=== PATIENT | male | born 1995 | race Caucasian/White ===

== ENCOUNTER 2025-02-06 06:26 | Day surgery (SDC) | payer OTHER, SELFPAY ==
[2025-02-06 07:29] VITALS: BP 125/75; PULSE 85; RESP 16; TEMP 36.1; O2SAT 99
[2025-02-06 07:41] VITALS: BMI 30.3
[2025-02-06] MEDS: LACTATED RINGERS 1000ML 1,000 ML 50 ML IV (07:45)
--- NOTE | 2025-02-06 07:47 | EXP.HP ---
History of Present Illness *Admission Date: 02/06/25 *Reason for visit:: Bright red rectal bleeding *History of present illness: Mr. Herring is a 30-year-old gentleman who is here for evaluation of bright red rectal bleeding. He has had this for a long time but he says that this is markedly worse over the last 2 to 3 months. He has bright red blood with his bowel movements and blood dripping into the commode. He is uncertain whether he has hemorrhoid prolapse. He does get some anorectal pain but this often occurs when he does not have bleeding and is less frequent. He does report having a large amount of blood in the commode with each bowel movement and blood on the tissue. Notably, he has had moderate amount of weight loss and states that he is lost 6 pounds every 2 weeks. He reports no abdominal pain or family history of colon cancer. He is not on any NSAIDs. He does report normal bowel function but does have incomplete defecation with excessive wiping and longer periods of time on the commode. He does state that his father had prostate cancer. He reports no family history of IBD, Crohn's or colitis. [facility] Disclaimer: The information contained in this section may have been updated after the patient was seen, as this information can be updated by other users. Medical History Hypertension GERD (gastroesophageal reflux disease) Depression Anxiety Surgical History Hx of appendectomy Family History Other Cancer Stroke Social History (Updated 02/06/25 @ 07:43 by Arleen Ballard RN) Smoking Status: Current every day smoker tobacco type: e-cigarettes alcohol intake: former substance use type: denies use current occupational status: employed Travel in the last 8 weeks?: None caffeine: Yes Have you lived/traveled outside [place] in past 30 days?: No Contact w/someone who lives/traveled outside [place] past 30 days?: No Exposure to someone with infectious disease in past 14 days?: No Do you have a fever (greater than 100.4 F or 38 C)?: No Have you tested positive for COVID-19?: No Exposed to someone with COVID-19 in past 14 days?: No Do you have a sore throat?: No Do you have a cough?: No Do you have any weakness?: No Are you experiencing any nausea/vomitting?: No Do you have any diarrhea?: No Are you experiencing any unusual bleeding?: No Do you have any muscle aches/pain?: No Do you have any abdominal pain?: No Are you experiencing loss of taste or smell?: No Review of Systems Review of Systems Review of systems (narrative): Negative *Cardiovascular Comments: Negative *Gastrointestinal Comments: Negative *Genitourinary Comments: Negative *Musculoskeletal Comments: Negative *Neurologic Comments: Negative Meds Home Medications and Allergies Home Medications ?Medication ?Instructions ?Recorded ?Confirmed ?Type bupropion HCl 150 mg 24 hr tablet, 150 mg PO DAILY 01/24/25 02/06/25 History extended release lamotrigine 25 mg tablet 25 mg PO DAILY 01/24/25 02/06/25 History lisinopril 10 mg tablet 10 mg PO DAILY 01/24/25 02/06/25 History mirtazapine 7.5 mg tablet 7.5 mg PO HS 01/24/25 02/06/25 History naltrexone 50 mg tablet 50 mg PO DAILY 01/24/25 02/06/25 History omeprazole 40 mg capsule,delayed 40 mg PO DAILY 01/24/25 02/06/25 History release propranolol 20 mg tablet 20 mg PO TID 01/24/25 02/06/25 History sucralfate 1 gram tablet 1 g PO 4XD 01/24/25 02/06/25 History tadalafil 10 mg tablet 10 mg PO DAILY PRN . 01/24/25 02/06/25 History testosterone cypionate 200 mg/mL 200 mg IM Q2W 01/24/25 02/06/25 History intramuscular oil sodium,potassium,mag sulfates 17.5 See Rx Instructions PO .COMPLEX 02/03/25 02/06/25 Rx gram-3.13 gram-1.6 gram oral soln #354 mL (Suprep Bowel Prep Kit) New Prescriptions to Start Prescriptions: Allergies Allergy/AdvReac Type Severity Reaction Status Date / Time amoxicillin Allergy Unknown Verified 02/06/25 07:37 allergy reaction erythromycin base Allergy Unknown Verified 02/06/25 07:37 allergy reaction Exam Data for Last 24 hours Vital signs and Labs for Last 24 Hours: Temp Pulse Resp BP Pulse Ox O2 Del Method 97.0 F L 85 16 125/75 99 Room Air 02/06/25 07:29 02/06/25 07:29 02/06/25 07:29 02/06/25 07:29 02/06/25 07:29 02/06/25 07:29 I & O for Last 24 hours: Intake & Output 02/03/25 02/04/25 02/05/25 02/06/25 23:59 23:59 23:59 23:59 Weight 230 lb *Routine HEENT Exam Head: Present normocephalic Eye: Present EOMI and PERRL ENT: Present mucous membranes moist *Routine Neck Exam Neck: Present supple *Routine Respiratory Exam Respiratory: Present CTA bilaterally *Routine Cardiovascular Exam Cardiovascular: Present RRR *Routine Abdominal Exam Abdominal: Present soft and normoactive bowel sounds; Absent tenderness *Routine Rectal Exam Rectal:: deferred *Routine Genitalia Exam Genitalia:: deferred *Routine Extremities Exam Extremities: Absent cyanosis, clubbing or edema *Routine Skin Exam Skin: Present warm; Absent rash *Routine Neurological Exam Neurological: Present alert and oriented X3 Assessment and Plan *Assessment and plan (1) Rectal bleeding: Status: Acute Category: Medical Code(s): K62.5 - Hemorrhage of anus and rectum (2) Bright red blood per rectum: Status: Acute Category: Medical Code(s): K62.5 - Hemorrhage of anus and rectum (3) Abnormal weight loss: Status: Acute Category: Medical Code(s): R63.4 - Abnormal weight loss Plan A/P: 1. Bright red rectal bleeding with abnormal weight loss is the preprocedural diagnosis. The patient will be anesthetized/sedated using MAC sedation. The patient has been seen and examined. Cardiac and lung assessment prior to the examination is stable. Proceed with planned diagnostic EGD.
--- NOTE | 2025-02-06 07:51 | EXP.ANES.CKL ---
[facility] Disclaimer: The information contained in this section may have been updated after the patient was seen, as this information can be updated by other users. Medical History Hypertension GERD (gastroesophageal reflux disease) Depression Anxiety Surgical History Hx of appendectomy Family History Other Cancer Stroke Social History (Updated 02/06/25 @ 07:43 by Arleen Ballard RN) Smoking Status: Current every day smoker tobacco type: e-cigarettes alcohol intake: former substance use type: denies use current occupational status: employed Travel in the last 8 weeks?: None caffeine: Yes Have you lived/traveled outside [place] in past 30 days?: No Contact w/someone who lives/traveled outside [place] past 30 days?: No Exposure to someone with infectious disease in past 14 days?: No Do you have a fever (greater than 100.4 F or 38 C)?: No Have you tested positive for COVID-19?: No Exposed to someone with COVID-19 in past 14 days?: No Do you have a sore throat?: No Do you have a cough?: No Do you have any weakness?: No Are you experiencing any nausea/vomitting?: No Do you have any diarrhea?: No Are you experiencing any unusual bleeding?: No Do you have any muscle aches/pain?: No Do you have any abdominal pain?: No Are you experiencing loss of taste or smell?: No [facility] Anesthesia Checklist Patient Identification Patient Identification: Arm Band Structural Data Admitted From: Home Planned Operative Procedure/s: Colonoscopy Consent for Planned Operative Procedure(s) Verified: Yes Verified Documents: Surgical Consent and History and Physical NPO Status Verified Time NPO: 00:00 Additional verifications Anesthesia Reactions: No Airway Assessment Mallampati Score:: Class II C-Spine Mobility Assessed: Yes TMJ Mobility Assessed: Yes Dentition: Good Dentition Neurological Assessment Level of Consciousness: Awake, Alert and Appropriate Anesthesia Plan Anesthesia Risk discussed: Yes Anesthesia Plan: Verified ASA Class: II Anesthesia Type: MAC
--- NOTE | 2025-02-06 07:51 | HMH.PROCNOTE ---
[facility] Procedure Note Date: 02/06/25 Time: 08:04 Procedure Note:: Colonoscopy Procedure Report: Colonoscopy with hemorrhoid band ligation Endoscopist: Baldev Rudd II, MD Referring physician: DOROTHY Knott Date of Procedure: February 06, 2025 Equipment: Olympus 190 variable stiffness pediatric colonoscope Sedation: MAC sedation Indication: Mr. Herring is a 30-year-old gentleman who is here diagnostic colonoscopy secondary to bright red rectal bleeding. He has had this for a long time but he says that this is markedly worse over the last 2 to 3 months. He has bright red blood with his bowel movements and blood dripping into the commode. He is uncertain whether he has hemorrhoid prolapse. He does get some anorectal pain but this often occurs when he does not have bleeding and is less frequent. He does report having a large amount of blood in the commode with each bowel movement and blood on the tissue. Notably, he has had moderate amount of weight loss and states that he is lost 6 pounds every 2 weeks. He reports no abdominal pain or family history of colon cancer. He is not on any NSAIDs. He does report normal bowel function but does have incomplete defecation with excessive wiping and longer periods of time on the commode. He does state that his father had prostate cancer. He reports no family history of IBD, Crohn's or colitis. Procedure: Prior to the procedure, a history and physical exam was performed, and patient's medications and allergies were reviewed. The risks, benefits and alternatives of the sedation and procedure were discussed with the patient. All questions were answered and informed consent was obtained. The patient was brought to the procedure room. Patient identification and proposed procedure were verified by the physician and the nurse. The patient was placed in a left lateral decubitus position and the scope was passed under direct vision. Throughout the procedure, the patient's blood pressure, pulse, and oxygen saturations were monitored continuously. The colonoscopy was accomplished without difficulty. The patient tolerated the procedure well. Findings: On digital rectal examination there was normal rectal tone. There were no external hemorrhoids. There was a posterior midline anal fissure. The colonoscope was introduced through the anal canal to the rectum and advanced to the cecum. The ileocecal valve and appendiceal orifice were identified. The scope was advanced a short distance into the ileum which appeared grossly normal. The scope was then withdrawn into the colon. The cecum, ascending, transverse, descending, sigmoid and rectum were grossly normal. There were no mucosal abnormalities identified. Upon retroflexion within the rectum there were grade 2-3 internal hemorrhoids. 3 columns of hemorrhoids were banded using 3 bands with excellent ligation effect. The preparation was excellent throughout with [place] Preparation Score of 9. The cecal time was 10 minutes. Impression: 1. Normal colonoscopy with intubation of the terminal ileum 2. Posterior midline anal fissure 3. Grade 2-3 internal hemorrhoids status post band ligation x 3 Plan: I would encourage continued psyllium bulking fiber supplementation on a long-term daily maintenance basis. I am going to administer topical perianal nitroglycerin ointment today and discuss the findings with the patient and family.
[2025-02-06 08:13] VITALS: BP 137/79; PULSE 100; RESP 16; TEMP 36.3; O2SAT 96
[2025-02-06 08:23] VITALS: BP 126/74; PULSE 92; RESP 16; O2SAT 97
[2025-02-06 08:33] VITALS: BP 125/76; PULSE 90; RESP 16; O2SAT 98
[2025-02-06 08:43] VITALS: BP 128/76; PULSE 94; RESP 16; O2SAT 99
== END 2025-02-06 08:43 | disposition home or self-care (01) ==
PROVIDERS: PCP Nurse Practitioner Family; Visit Provider Internal Medicine Gastroenterology
PROC: 0DJD8ZZ Inspection of Lower Intestinal Tract, Via Natural or Artificial Opening Endoscopic (ICD-10-PCS; CPT 45378; principal; 2025-02-06 08:00)
DX: K60.2 Anal fissure, unspecified (principal); K64.1 Second degree hemorrhoids; K64.2 Third degree hemorrhoids; K21.9 Gastro-esophageal reflux disease without esophagitis; I10 Essential (primary) hypertension; F17.290 Nicotine dependence, other tobacco product, uncomplicated; Z79.899 Other long term (current) drug therapy
CPT/HCPCS: 45398; C1889; J7120